=== PATIENT | female | born 1975 | race Caucasian/White ===

== ENCOUNTER 2018-10-31 08:56 | Outpatient (CLI) | payer OTHER | END 2018-10-31 23:59 | disposition home or self-care (01) | LOC: D.MAMMO 08:56 | DX: Z12.31 Encounter for screening mammogram for malignant neoplasm of breast (principal) ==

== ENCOUNTER 2019-03-04 09:28 | Inpatient (IN) | payer OTHER ==
[~2019-03-04] VITALS: Ht 149.9 cm; Wt 72.0 kg
--- NOTE | ~2019-03-04 | CN ---
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 PAST MEDICAL HISTORY: Includes; 1. History of supraventricular tachycardia. 2. Gastroesophageal reflux disease. ALLERGIES: INCLUDE NONSTEROIDALS, SULFA, MORPHINE. MEDICATIONS: Include Flexeril 10 mg t.i.d. p.r.n., Phenergan 25 mg every 4 hours p.r.n., atenolol 25 b.i.d., Adderall 10 daily, Prozac 40 every day, Klonopin 0.5 every day, Atarax 25 q.i.d. p.r.n., tramadol 50 every 6 hours p.r.n., Zofran 4 mg every 4 hours p.r.n. SOCIAL HISTORY: Works here at [employer]. She is a nonsmoker. Easily takes care of her ADLs. REVIEW OF SYSTEMS: The patient reports easy bruising but reports no swollen glands. The patient reports no fever, no night sweats, no significant weight gain, no significant weight loss. No significant exercise tolerance. The patient reports no dry eyes, no irritation, no vision change. Patient reports no difficulty hearing and no ear pain. Patient reports no frequent nose bleeds or nose and sinus problems. Patient reports on arm pain on exertion. No shortness of breath while lying down. No history of heart murmur. Patient reports no cough, no wheezing or coughing up blood. Patient reports no abdominal pain, no vomiting. Normal appetite. No diarrhea and not vomiting blood. No nausea and no constipation. Patient reports no incontinence. No difficulty urinating. No hematuria. No increased frequency. Patient reports no muscle aches. No weakness, no arthralgias, no back pain. No swelling of the extremities. Patient reports no abnormal mole, no jaundice, no rashes. Reports no loss of consciousness. No weakness and no numbness. No seizures, dizziness, or headaches. The patient reports no depression, no sleep disturbance, feeling safe in a relationship and no alcohol abuse. Patient reports on fatigue. Reports no runny nose or sinus pressure. No itching, no hives, and no frequent sneezing. PHYSICAL EXAMINATION: GENERAL: Pleasant female, appears stated age, in no acute distress. HEENT: Normocephalic, atraumatic. NECK: No bruits noted. HEART: Regular. No gallops noted. LUNGS: Good air excursion. ABDOMEN: Soft, nontender. EXTREMITIES: Pulse are well preserved, 2+ with no edema. CONSULT REPORT [id number] KYLIE STOCKTON NEUROLOGIC: Grossly intact. IMPRESSION: Supraventricular tachycardia, resolved, typically is well-controlled on atenolol, would make no change in medication, discussed, extra half tablet pill in the pocket, vagal maneuvers, etc. TRANSINT:[id number] Voice Confirmation ID: [id number] DOCUMENT ID: [id number] HAYES LEON MD CC: [id number] DICTATION DATE: 03/05/19 0859 MANUFACTURING ENGINEERING MANAGER: 03/05/19 1127 ADM IN [place] [id number] [place] [id number]
[2019-03-04] MEDS ORDERED: KLONOPIN0.5 MG PO (09:35)
[2019-03-04] MEDS ORDERED: PROZAC40 MG PO (09:36)
[2019-03-04] MEDS ORDERED: TENORMIN25 MG PO (09:36)
[2019-03-04] MEDS ORDERED: ATARAX 25 MG TA25 MG PO (09:37)
[2019-03-04] MEDS ORDERED: ADDERALL 10 MG10 MG PO (09:37)
[2019-03-04] MEDS ORDERED: PHENERGAN25 M1 PO (09:38)
[2019-03-04] MEDS ORDERED: ZOFRAN4 MG PO (09:38)
[2019-03-04] MEDS ORDERED: ULTRAM50 MG PO (09:38)
[2019-03-04] MEDS ORDERED: HYDROCODON-ACE1 EA10 PO (09:38)
[2019-03-04] MEDS ORDERED: CYCLOBENZAPRINE10 MG PO (09:39)
[2019-03-04] MEDS ORDERED: VITAMIN D2000 UNIT PO (09:40)
[2019-03-04] MEDS ORDERED: OXYBUTYNIN CHLOR5 MG PO (09:41)
[2019-03-04] MEDS ORDERED: VITAMIN B-122500 MCG PO (09:41)
[2019-03-04] MEDS ORDERED: FLOMAX0.4 MG PO (09:41)
[2019-03-04 10:18] LABS: BASOPHILS 0.2 % (0-2); EOSINOPHILS 0.3 % (0-7); HEMATOCRIT 44.1 % (36.0-48.0); HEMOGLOBIN 15.3 g/dL (12-16); IMMATURE GRANULOCYTES 0.5 % (0-5); LYMPHOCYTES 19.3 % (15-50); MCH 30.7 pg (26.0-34.0); MCHC 34.7 g/dL (31.0-37.0); MCV 88.6 fL (80.0-100.0); MEAN PLATELET VOLUME 9.8 fL (7.4-10.4); MONOCYTES 8.3 % (2-11); NEUTROPHILS 71.4 % (40-80); PLATELET COUNT 320 10x3/uL (130-400); RBC 4.98 10x6/uL (4.00-5.40); RDW 12.9 % (11.5-14.5); WBC 13.1 10x3/uL (4.8-10.8)
[2019-03-04 10:25] LABS: APTT 26.9 SECONDS (22.8-39.4); INR 0.98 (0.85-1.17); PROTIME 12.5 SECONDS (11.6-15.0)
[2019-03-04 10:30] VITALS: BP 150/96
[2019-03-04 10:44] LABS: ALBUMIN 3.9 g/dL (3.4-5.0); ALKALINE PHOSPHATASE 122 U/L (46-116); ALT (SGPT) 32 U/L (10-68); BILIRUBIN - TOTAL 0.35 mg/dL (0.2-1.3); CALC OSMOLALITY 272 mosm/kg (275-300); CARBON DIOXIDE 21.7 mmol/L (21.0-32.0); CHLORIDE - SERUM 101 mmol/L (98-107); CKMB 0.3 U/L (0.0-3.6); CREATINE KINASE 35 UL (21-215); CREATININE - SERUM 1.2 mg/dL (0.6-1.3); GLUCOSE 119 mg/dL (74-106); MAGNESIUM - SERUM 1.7 mg/dL (1.8-2.4); PROTEIN - SERUM 7.5 g/dL (6.4-8.2); SODIUM 136 mmol/L (136-145); UREA NITROGEN 13 mg/dL (7-18); eGFR NON AFRICAN AMERICAN 52 mL/min (90-120)
[2019-03-04 10:46] LABS: TROPONIN-I < 0.017 ng/mL (0.000-0.060)
[2019-03-04 10:48] LABS: POTASSIUM - SERUM 2.9 mmol/L (3.5-5.1)
[2019-03-04 10:54] LABS: AMYLASE - SERUM 52 U/L (25-115); LIPASE 132 U/L (73-393)
[2019-03-04 11:18] LABS: APPEARANCE CLEAR (CLEAR); BILIRUBIN NEGATIVE (NEGATIVE); COLOR STRAW (YELLOW); GLUCOSE NEGATIVE (NEGATIVE); KETONE NEGATIVE (NEGATIVE); NITRITE NEGATIVE (NEGATIVE); PROTEIN NEGATIVE (NEGATIVE); SPECIFIC GRAVITY 1.005 (1.005-1.020); UROBILINOGEN NORMAL (NORMAL)
[2019-03-04 11:19] LABS: BACTERIA FEW /hpf (NONE SEEN); EPITHELIAL CELLS OCC /hpf (0-5); MUCUS <1+ /lpf (NONE SEEN); RED CELLS - URINE 0-5 /hpf (0-5)
[2019-03-04 12:57] VITALS: BP 122/71
[2019-03-04 14:29] VITALS: BP 103/75; BMI 30.3
--- NOTE | 2019-03-04 16:25 | MORECARE ---
CASE MANAGEMENT DISCHARGE SUMMARY PATIENT: KYLIE STOCKTON UNIT: [id number] ADM DATE: 03/04/19 AGE: 43 : 77 SEX: F ROOM/BED: D.E09 AUTHOR: SCOTT RUST PHYSICIAN: REFERRING PHYSICIAN: DIMA JACOBS MD DATE OF SERVICE: 03/04/19 Discharge Plan Patient Name: KYLIE STOCKTON [facility] [facility] 1975 Planned Disposition: Home Anticipated Discharge Date: 03/06/19 Discharge Date: Expected LOS: 2 Initial Reviewer: [email or web address] Initial Review Date: 03/04/2019 Generated: 03/04/19 5:24 pm DCPIA - Discharge Planning Initial Assessment Updated by [email or web address]: Sheree Trujillo on 03/04/19 4:23 pm * Is the patient Alert and Oriented? Yes * How many steps to enter\exit or inside your home? None * PCP Dr. March in [place] * Pharm[facility] in [place] * Preadmission Environment Home with Family * ADLs Independent * Equipment None * List name and contact numbers for known caregivers / representatives who currently or will assist patient after discharge: Kj Stockton - spouse - [phone] * Verbal permission to speak to the caregivers and representatives has been obtained from the patient. Yes * Community resources currently utilized None * Additional services required to return to the preadmission environment? No * Can the patient safely return to the preadmission environment? Yes * Has this patient been hospitalized within the prior 30 days at any hospital? No Patient Name: KYLIE STOCKTON Page [id number] at 1625 All edits/amendments must be made on the electronic document DICTATION DATE: 03/04/19 162 SENIOR OCCUPATIONAL THERAPIST: MARYANN 03/04/19 162 RPT#: [id number] DC DATE: STATUS: ADM IN [facility] [address] [place] [address] END OF REPORT
--- NOTE | 2019-03-04 16:35 | MORECARE ---
CASE MANAGEMENT DISCHARGE SUMMARY PATIENT: KYLIE STOCKTON UNIT: [id number] ADM DATE: 03/04/19 AGE: 43 : 77 SEX: F ROOM/BED: D.E09 AUTHOR: SCOTT RUST PHYSICIAN: REFERRING PHYSICIAN: DIMA JACOBS MD DATE OF SERVICE: 03/04/19 Discharge Plan Patient Name: KYLIE STOCKTON Facility: [facility]:[place] : 1975 Planned Disposition: Home Anticipated Discharge Date: 03/06/19 Discharge Date: Expected LOS: 2 Initial Reviewer: [email or web address] Initial Review Date: 03/04/2019 Generated: 03/04/19 5:35 pm DCP- Discharge Planning Updated by [email or web address]: Sheree Trujillo on 03/04/19 3:[address] Patient Name: KYLIE STOCKTON Admission Status: ER Accout number: [id number] Admission Date: 03-04-2019 : 1975 Admission Diagnosis: Attending: DIMA JACOBS Current LOS: 1 Anticipated DC Date: 03-06-2019 Planned Disposition: Home Primary Insurance: [employer] PPO Discharge Planning Comments: CM met with patient, her , and her mother to complete initial dc planning assessment. CM educated patient on the CM role and verbal consent given by patient to complete assessment. Patient lives at home independently with her and her son. At discharge patient plans to return home independently and feels this is a safe discharge. CM discussed availability of home health, rehab services, and medical equipment. Patient denied known discharge needs at this time. CM will continue to follow and will assist as needed with dc plans/needs. Film Process Operator: Sheree Trujillo RN, CCM RN, CCM DCPIA - Discharge Planning Initial Assessment Updated by [email or web address]: Sheree Trujillo on 03/04/19 4:23 pm * Is the patient Alert and Oriented? Yes * How many steps to enter\exit or inside your home? None * PCP Dr[facility] March in [place] * Pharmacy [facility] in [place] * Preadmission Environment Home with Family * ADLs Independent * Equipment None * List name and contact numbers for known caregivers / representatives who currently or will assist patient after discharge: Kj Stockton - [facility] - [phone] * Verbal permission to speak to the caregivers and representatives has been obtained from the patient. Yes * Community resources currently utilized None * Additional services required to return to the preadmission environment? No * Can the patient safely return to the preadmission environment? Yes * Has this patient been hospitalized within the prior 30 days at any hospital? No Last DP export: 03/04/19 3:25 pm Patient Name: KYLIE STOCKTON Page [id number] at 1635 All edits/amendments must be made on the electronic document DICTATION DATE: 03/04/19 1635 DIRECTOR CAREER SERVICES: MARYANN 03/04/19 1635 RPT#: [id number] DC DATE: STATUS: ADM IN [facility] [address] [place] [address] END OF REPORT
[2019-03-04 18:00] VITALS: BP 133/70
[2019-03-04 20:00] VITALS: BP 103/74
[2019-03-04 23:55] VITALS: BP 108/74
[2019-03-05 04:31] VITALS: BP 88/60
[2019-03-05 06:53] LABS: BASOPHILS 0 % (0-2); EOSINOPHILS 1.6 % (0-7); HEMATOCRIT 37.6 % (36.0-48.0); HEMOGLOBIN 12.5 g/dL (12-16); IMMATURE GRANULOCYTES 0.2 % (0-5); LYMPHOCYTES 28.6 % (15-50); MCH 29.6 pg (26.0-34.0); MCHC 33.2 g/dL (31.0-37.0); MCV 89.1 fL (80.0-100.0); MEAN PLATELET VOLUME 9.6 fL (7.4-10.4); NEUTROPHILS 59.6 % (40-80); PLATELET COUNT 264 10x3/uL (130-400); RBC 4.22 10x6/uL (4.00-5.40); RDW 13.3 % (11.5-14.5)
[2019-03-05 06:55] LABS: WBC 8.3 10x3/uL (4.8-10.8)
[2019-03-05 07:40] LABS: CALC OSMOLALITY 281 mosm/kg (275-300); CARBON DIOXIDE 22.1 mmol/L (21.0-32.0); CHLORIDE - SERUM 110 mmol/L (98-107); CREATININE - SERUM 0.8 mg/dL (0.6-1.3); GLUCOSE 89 mg/dL (74-106); POTASSIUM - SERUM 3.4 mmol/L (3.5-5.1); SODIUM 143 mmol/L (136-145); UREA NITROGEN 7 mg/dL (7-18); eGFR NON AFRICAN AMERICAN 83 mL/min (90-120)
[2019-03-05 07:45] LABS: CALCIUM 6.8 mg/dL (8.5-10.1)
[2019-03-05 09:16] VITALS: BP 133/78
[2019-03-05 09:45] VITALS: BP 95/66
[2019-03-05 14:22] VITALS: Ht 149.9 cm; Wt 72.0 kg
[2019-03-05 15:52] VITALS: BP 99/57
[2019-03-05 21:53] VITALS: BP 107/71
[2019-03-06] VITALS: BP 109/73
[2019-03-06 00:09] LABS: UDS - AMPHET NEGATIVE QUAL (NEGATIVE); UDS - BARB NEGATIVE QUAL (NEGATIVE); UDS - BENZO NEGATIVE QUAL (NEGATIVE); UDS - COCAINE NEGATIVE QUAL (NEGATIVE); UDS - OPIATE POSITIVE QUAL (NEGATIVE); UDS - PCP NEGATIVE QUAL (NEGATIVE); UDS - THC NEGATIVE QUAL (NEGATIVE)
[2019-03-06 05:44] LABS: BASOPHILS 0.2 % (0-2); EOSINOPHILS 3.9 % (0-7); HEMATOCRIT 38.6 % (36.0-48.0); HEMOGLOBIN 12.9 g/dL (12-16); IMMATURE GRANULOCYTES 0.2 % (0-5); LYMPHOCYTES 37.6 % (15-50); MCH 29.6 pg (26.0-34.0); MCHC 33.4 g/dL (31.0-37.0); MCV 88.5 fL (80.0-100.0); MEAN PLATELET VOLUME 9.5 fL (7.4-10.4); MONOCYTES 10.1 % (2-11); PLATELET COUNT 271 10x3/uL (130-400); RBC 4.36 10x6/uL (4.00-5.40); RDW 13.1 % (11.5-14.5); WBC 6.5 10x3/uL (4.8-10.8)
[2019-03-06 05:47] VITALS: BP 110/72
[2019-03-06 05:57] LABS: CALC OSMOLALITY 280 mosm/kg (275-300); CALCIUM 8.2 mg/dL (8.5-10.1); CARBON DIOXIDE 24.6 mmol/L (21.0-32.0); CHLORIDE - SERUM 109 mmol/L (98-107); CREATININE - SERUM 0.7 mg/dL (0.6-1.3); GLUCOSE 100 mg/dL (74-106); MAGNESIUM - SERUM 1.8 mg/dL (1.8-2.4); SODIUM 142 mmol/L (136-145); UREA NITROGEN 6 mg/dL (7-18); eGFR NON AFRICAN AMERICAN > 90 mL/min (90-120)
[2019-03-06 10:02] VITALS: BP 130/82
[2019-03-06 15:34] VITALS: BP 143/77
[2019-03-07] VITALS: BP 116/86
[2019-03-07 04:00] VITALS: BP 91/61
[2019-03-07 07:11] LABS: HEMOGLOBIN 13.6 g/dL (12-16); LYMPHOCYTES 28.8 % (15-50); MCH 30.5 pg (26.0-34.0); MCHC 34.9 g/dL (31.0-37.0); MCV 87.4 fL (80.0-100.0); MEAN PLATELET VOLUME 8.9 fL (7.4-10.4); NEUTROPHILS 61.5 % (40-80); PLATELET COUNT 267 10x3/uL (130-400); RBC 4.46 10x6/uL (4.00-5.40); RDW 12.6 % (11.5-14.5); WBC 7.3 10x3/uL (4.8-10.8)
[2019-03-07 07:20] LABS: CALC OSMOLALITY 277 mosm/kg (275-300); CALCIUM 8.5 mg/dL (8.5-10.1); CARBON DIOXIDE 24.8 mmol/L (21.0-32.0); CHLORIDE - SERUM 107 mmol/L (98-107); CREATININE - SERUM 0.7 mg/dL (0.6-1.3); GLUCOSE 114 mg/dL (74-106); POTASSIUM - SERUM 3.8 mmol/L (3.5-5.1); SODIUM 140 mmol/L (136-145); UREA NITROGEN 7 mg/dL (7-18); eGFR NON AFRICAN AMERICAN > 90 mL/min (90-120)
[2019-03-07 10:09] LABS: HCG URINE NEGATIVE (NEGATIVE)
[2019-03-07 12:00] VITALS: BP 105/68
[2019-03-07] MEDS ORDERED: FLAGYL500 MG PO (15:39)
[2019-03-07] MEDS ORDERED: LEVAQUIN750 MG PO (15:39)
[2019-03-07 16:45] VITALS: BP 137/94
--- NOTE | 2019-03-07 17:08 | MORECARE ---
CASE MANAGEMENT DISCHARGE SUMMARY PATIENT: KYLIE STOCKTON UNIT: [id number] ADM DATE: 03/04/19 AGE: 43 : 77 SEX: F ROOM/BED: D.2123 AUTHOR: YOCASTADOC PHYSICIAN: REFERRING PHYSICIAN: DIMA JACOBS MD DATE OF SERVICE: 03/07/19 Discharge Plan Patient Name: KYLIE STOCKTON Facility: [facility]:[place] : 1975 Planned Disposition: Home Anticipated Discharge Date: 03/07/19 Discharge Date: Expected LOS: 3 Initial Reviewer: [email or web address] Initial Review Date: 03/04/2019 Generated: 03/07/19 6:08 pm DCP- Discharge Planning Updated by [email or web address]: Sheree Trujillo on 03/04/19 3:[address] Patient Name: KYLIE STOCKTON Admission Status: ER Accout number: [id number] Admission Date: 03-04-2019 : 1975 Admission Diagnosis: Attending: DIMA JACOBS Current LOS: 1 Anticipated DC Date: 03-06-2019 Planned Disposition: Home Primary Insurance: [place] PPO Discharge Planning Comments: CM met with patient, her , and her mother to complete initial dc planning assessment. CM educated patient on the CM role and verbal consent given by patient to complete assessment. Patient lives at home independently with her and her son. At discharge patient plans to return home independently and feels this is a safe discharge. CM discussed availability of home health, rehab services, and medical equipment. Patient denied known discharge needs at this time. CM will continue to follow and will assist as needed with dc plans/needs. Supervisor Chassis Assembly: Sheree Trujillo RN, CCM RN, CCM DCPIA - Discharge Planning Initial Assessment Updated by [email or web address]: Sheree Trujillo on 03/04/19 4:23 pm * Is the patient Alert and Oriented? Yes * How many steps to enter\exit or inside your home? None * PCP Dr[facility] March in [place] * Pharmacy [facility] in [place] * Preadmission Environment Home with Family * ADLs Independent * Equipment None * List name and contact numbers for known caregivers / representatives who currently or will assist patient after discharge: Kj Stockton - [facility] - [phone] * Verbal permission to speak to the caregivers and representatives has been obtained from the patient. Yes * Community resources currently utilized None * Additional services required to return to the preadmission environment? No * Can the patient safely return to the preadmission environment? Yes * Has this patient been hospitalized within the prior 30 days at any hospital? No Last DP export: 03/04/19 3:35 pm Patient Name: KYLIE STOCKTON Page 43703 at 1708 All edits/amendments must be made on the electronic document DICTATION DATE: 03/07/191706 ATTENDING RADIOLOGIST: MARYANN 03/07/191706 RPT#: [id number] DC DATE: STATUS: ADM IN [facility] [address] [place] [address] END OF REPORT
[2019-03-07 19:08] LABS: OVA + PARASITE EXAM Final report (())
== END 2019-03-07 17:45 | disposition home or self-care (01) | DRG 392 ==
LOC: D.ER 09:28 → D.M2 15:31 → D.EDHOLD 15:31 → D.M2 18:37
PROVIDERS: Family Medicine; Internal Medicine Gastroenterology; ADMIT Internal Medicine Nephrology; ATTEND Internal Medicine Nephrology
DX: K52.9 Noninfective gastroenteritis and colitis, unspecified (principal); I47.1 Supraventricular tachycardia; N39.0 Urinary tract infection, site not specified; Q61.5 Medullary cystic kidney; F17.293 Nicotine dependence, other tobacco product, with withdrawal; E87.6 Hypokalemia; E83.51 Hypocalcemia; K21.9 Gastro-esophageal reflux disease without esophagitis; F32.9 Major depressive disorder, single episode, unspecified; F41.9 Anxiety disorder, unspecified; D18.09 Hemangioma of other sites

== ENCOUNTER 2019-04-16 09:10 | Emergency (ER) | payer OTHER ==
[~2019-04-16] VITALS: Ht 149.9 cm; Wt 522.7 kg
[~2019-04-16 09:10] MED LIST: ADDERALL 10 MG10 MG PO; ATARAX 25 MG TA25 MG PO; CYCLOBENZAPRINE10 MG PO; FLAGYL500 MG PO; FLOMAX0.4 MG PO; HYDROCODON-ACE1 EA10 PO; KLONOPIN0.5 MG PO; LEVAQUIN750 MG PO; OXYBUTYNIN CHLOR5 MG PO; PHENERGAN25 M1 PO; PROZAC40 MG PO; TENORMIN25 MG PO; ULTRAM50 MG PO; VITAMIN B-122500 MCG PO; VITAMIN D2000 UNIT PO; ZOFRAN4 MG PO
[2019-04-16 09:14] VITALS: Ht 149.9 cm; Wt 522.7 kg
[2019-04-16 09:47] LABS: BASOPHILS 0.1 % (0-2); EOSINOPHILS 0.8 % (0-7); HEMATOCRIT 41.8 % (36.0-48.0); HEMOGLOBIN 15.1 g/dL (12-16); IMMATURE GRANULOCYTES 0.3 % (0-5); MCH 31.3 pg (26.0-34.0); MCHC 36.1 g/dL (31.0-37.0); MCV 86.7 fL (80.0-100.0); MEAN PLATELET VOLUME 9.3 fL (7.4-10.4); MONOCYTES 7.4 % (2-11); NEUTROPHILS 67.4 % (40-80); PLATELET COUNT 281 10x3/uL (130-400); RBC 4.82 10x6/uL (4.00-5.40); RDW 12.4 % (11.5-14.5); WBC 10.5 10x3/uL (4.8-10.8)
[2019-04-16 10:06] LABS: HCG SERUM NEGATIVE (NEGATIVE)
[2019-04-16 10:08] LABS: APPEARANCE CLEAR (CLEAR); BACTERIA FEW /hpf (NONE SEEN); BILIRUBIN NEGATIVE (NEGATIVE); COLOR STRAW (YELLOW); EPITHELIAL CELLS 0-5 /hpf (0-5); GLUCOSE NEGATIVE (NEGATIVE); KETONE NEGATIVE (NEGATIVE); MUCUS <1+ /lpf (NONE SEEN); NITRITE NEGATIVE (NEGATIVE); PROTEIN NEGATIVE (NEGATIVE); SPECIFIC GRAVITY 1.005 (1.005-1.020); UROBILINOGEN NORMAL (NORMAL); WHITE CELLS - URINE 0-5 /hpf (0-5)
[2019-04-16 10:35] LABS: ANION GAP 18.1 mmol/L (8-16); CALCIUM 8.4 mg/dL (8.5-10.1); CARBON DIOXIDE 20.6 mmol/L (21.0-32.0); CREATININE - SERUM 0.9 mg/dL (0.6-1.3); POTASSIUM - SERUM 3.7 mmol/L (3.5-5.1)
[2019-04-16 10:36] LABS: BILIRUBIN - TOTAL 0.06 mg/dL (0.2-1.3); PROTEIN - SERUM 6.5 g/dL (6.4-8.2)
[2019-04-16 10:39] LABS: MAGNESIUM - SERUM 1.7 mg/dL (1.8-2.4)
[2019-04-16 10:40] LABS: THYROID STIMULATING HORMONE 2.07 uIU/mL (0.36-3.74); TROPONIN-I 0.044 ng/mL (0.000-0.060)
[2019-04-16 10:55] VITALS: BP 136/85
== END 2019-04-16 10:57 | disposition home or self-care (01) ==
LOC: D.ER 09:10 → D.CATH 09:10 → EDSTATUS 10:29 → D.ER 10:57
PROVIDERS: Family Medicine
DX: H53.8 Other visual disturbances (principal); R14.0 Abdominal distension (gaseous)

== ENCOUNTER → 2019-08-26 13:58 | Outpatient (CLI) | payer OTHER ==
[2019-04-16 09:14] VITALS: BMI 232.9
== END | disposition home or self-care (01) ==
LOC: D.US 13:58
PROVIDERS: ATTEND Nurse Practitioner Family
DX: R59.9 Enlarged lymph nodes, unspecified (principal)

== ENCOUNTER 2019-09-08 08:00 | Outpatient (CLI) | payer OTHER ==
[2019-04-16 09:14] VITALS: BMI 232.9
== END 2019-09-08 23:59 | disposition home or self-care (01) ==
LOC: D.MAMMO 08:00
PROVIDERS: ATTEND Family Medicine
DX: R92.8 Other abnormal and inconclusive findings on diagnostic imaging of breast (principal)

== ENCOUNTER → 2019-10-09 16:23 | Outpatient (CLI) | payer OTHER ==
[2019-04-16 09:14] VITALS: BMI 232.9
== END | disposition home or self-care (01) ==
LOC: D.RAD 16:23
PROVIDERS: ATTEND Urology
DX: Q61.5 Medullary cystic kidney (principal); R10.9 Unspecified abdominal pain

== ENCOUNTER → 2019-10-29 17:13 | Outpatient (CLI) | payer OTHER ==
[2019-04-16 09:14] VITALS: BMI 232.9
== END | disposition home or self-care (01) ==
LOC: D.LABREF 17:13
PROVIDERS: ATTEND Urology
DX: R82.90 Unspecified abnormal findings in urine (principal); R31.9 Hematuria, unspecified

== ENCOUNTER 2020-01-17 17:58 | Emergency (ER) | payer OTHER ==
[~2020-01-17] VITALS: Ht 149.9 cm; Wt 68.2 kg
[2020-01-17 18:15] VITALS: Ht 149.9 cm; Wt 68.2 kg
[2020-01-17 18:42] LABS: BILIRUBIN NEGATIVE (NEGATIVE); GLUCOSE NEGATIVE (NEGATIVE); KETONE NEGATIVE (NEGATIVE); NITRITE NEGATIVE (NEGATIVE); UROBILINOGEN NORMAL (NORMAL)
[2020-01-17 18:54] LABS: BASOPHILS 0.1 % (0-2); EOSINOPHILS 1.2 % (0-7); HEMATOCRIT 42.4 % (36.0-48.0); HEMOGLOBIN 14.4 g/dL (12-16); IMMATURE GRANULOCYTES 0.2 % (0-5); LYMPHOCYTES 33.1 % (15-50); MCH 31.3 pg (26.0-34.0); MCV 92.2 fL (80.0-100.0); MEAN PLATELET VOLUME 9.5 fL (7.4-10.4); MONOCYTES 7.6 % (2-11); NEUTROPHILS 57.8 % (40-80); PLATELET COUNT 290 10x3/uL (130-400); RDW 13.2 % (11.5-14.5); WBC 10.3 10x3/uL (4.8-10.8)
[2020-01-17 19:13] LABS: CALC OSMOLALITY 277 mosm/kg (275-300); CALCIUM 8.7 mg/dL (8.5-10.1); CARBON DIOXIDE 23.3 mmol/L (21.0-32.0); CHLORIDE - SERUM 103 mmol/L (98-107); CREATININE - SERUM 0.8 mg/dL (0.6-1.3); GLUCOSE 106 mg/dL (74-106); POTASSIUM - SERUM 3.8 mmol/L (3.5-5.1); SODIUM 138 mmol/L (136-145); UREA NITROGEN 17 mg/dL (7-18); eGFR NON AFRICAN AMERICAN 83 mL/min (90-120)
[2020-01-17 19:22] LABS: ALBUMIN 3.6 g/dL (3.4-5.0); ALKALINE PHOSPHATASE 90 U/L (30-120); ALT (SGPT) 24 U/L (10-68); BILIRUBIN - TOTAL 0.23 mg/dL (0.2-1.3); PROTEIN - SERUM 7.1 g/dL (6.4-8.2)
[2020-01-17] MEDS ORDERED: PHENERGAN25 M1 PO (19:44)
[2020-01-17 20:08] VITALS: BP 126/80
== END 2020-01-17 20:08 | disposition home or self-care (01) ==
LOC: D.ER 17:58
PROVIDERS: Family Medicine
DX: K59.00 Constipation, unspecified (principal); R10.9 Unspecified abdominal pain; K21.9 Gastro-esophageal reflux disease without esophagitis; Z87.442 Personal history of urinary calculi